=== PATIENT | female | born 1990 | race Caucasian/White ===

== ENCOUNTER 2021-09-29 15:47 | Outpatient (REF) | payer MEDICAID, OTHER, SELFPAY ==
--- NOTE | ~2021-09-29 | US_ITS ---
EXAMINATION: US PELVIS CLINICAL INFORMATION: Vaginal bleeding since IUD insertion 5 months ago. COMPARISON: None TECHNIQUE: Ultrasound of the pelvis is performed using both transabdominal and transvaginal transducers along with Doppler. Transvaginal imaging is performed due to inadequate visualization transabdominally. FINDINGS: UTERUS: The uterus is anteverted, anteflexed and measures 10.4 x 3.5 x 5.9 cm. The double wall endometrial thickness is 1.4 cm. There is an IUD within the endometrial canal in correct position. The uterus is smooth in contour and has normal myometrial echogenicity. No visible fibroid. ADNEXA: Both ovaries are visualized. There is normal color flow to the adnexa. There is no ovarian torsion. There is no pelvic ascites or fluid collection. Right ovary measures 2.9 x 1.9 x 2.7 cm and volume 7.8 mL. It appears unremarkable. Left ovary measures 4.5 x 2.7 x 3.3 cm and volume 2.1 mL. There is an anechoic cyst measuring 2.5 x 1.9 x 2.3 cm. US/US pelvic and transvaginal IMPRESSION: IUD within the endometrial canal in correct position. The uterus is otherwise unremarkable. Simple cyst left ovary.
== END 2021-09-29 15:48 | disposition home or self-care (01) ==
LOC: HO.US 15:47
PROVIDERS: Visit Provider Registered Nurse Community Health
DX: N93.9 Abnormal uterine and vaginal bleeding, unspecified (principal)
CPT/HCPCS: 76830; 76856

== ENCOUNTER 2021-10-05 08:49 | Emergency (ER) | payer MEDICAID, OTHER, SELFPAY ==
[2021-10-05 10:32] VITALS: BP 140/98; PULSE 82; RESP 20; TEMP 36.1; O2SAT 100; BMI 26.6
--- NOTE | 2021-10-05 18:30 | ED_ITS ---
HPI - Female Genitourinary General Chief complaint: Urogenital-Female Stated complaint: vaginal pain Time Seen by Provider: 10/05/21 17:51 Source: patient Mode of arrival: ambulatory Limitations: no limitations History of Present Illness HPI Narrative: This is a 30-year-old female presenting to the emergency department with pain to the left labia times 15 days. Patient tells me that the pain is intolerable and she can barely sit. She reports the pain is a 10/10, worse when she is sitting. She tells me that this has never happened to her before. She reports that the area is red and painful. She has not seek medical attention for this. She tells me that she is having normal vaginal discharge nothing out of the ordinary. She has been taking Tylenol with little to no relief. She tells me she is and has no concerns for STDs. Patient denies fevers, chills, chest pain, shortness of breath, nausea, vomiting. Onset (ago): day(s) (15) Location of symptoms: external genitalia Severity: severe Severity scale (1-10): >10 Quality of pain: sharp, burning and stabbing Vaginal discharge: other (clear normal ) Vaginal bleeding: none Exacerbating factors: none Relieving factors: none Associated symptoms: denies other symptoms Treatment prior to arrival: acetaminophen and NSAIDs Sexual activity: Yes Related Data Previous Rx's Medication Instructions Recorded cephalexin 500 mg tablet 500 mg PO Q6H 7 Days #28 tab 10/05/21 doxycycline hyclate 100 mg capsule 100 mg PO BID 7 Days #14 cap 10/05/21 ketorolac 10 mg tablet 10 mg PO TID PRN #8 tab 10/05/21 Allergies Allergy/AdvReac Type Severity Reaction Status Date / Time No Known Allergies Allergy Verified 10/05/21 10:47 Review of Systems Review of Systems: Constitutional : No Weight loss, No Fever, No Chills, No Fatigue, No Malaise ENT/Mouth : No sore throat, No Rhinorrhea Eyes: No Eye Pain, No Swelling, No Redness Cardiovascular : No Chest Pain, No SOB, No Dyspnea on Exertion, No Orthopnea, No Edema, No Palpitations Respiratory : No Cough, No Sputum, No Wheezing Gastrointestinal : No Nausea, No Vomiting, No Diarrhea, No Constipation, No abdominal Pain, No Hematochezia, No Melena Genitourinary : No Dysuria, No Urinary Frequency, No Hematuria, + labia swelling on left Musculoskeletal : No joint pain, No Myalgias, No Joint Swelling Skin : No Skin Lesions, No rash Neuro : No Weakness, No Numbness, No Dizziness, No Headache All other systems reviewed and are negative Yes all other systems are reviewed and are negative FOR[facility]LY [facility] Past Medical History Attestation statement: The following information was validated with the patient. Source: old records reviewed and nursing notes reviewed Social History Social History Advance Directives: No Advance Directives Information Provided: No Physical Exam Vital Signs: Vital Signs: Last Vital Signs Temp 97.0 F 10/05/21 10:32 Pulse 103 H 10/05/21 20:13 Resp 22 H 10/05/21 20:13 BP 116/60 10/05/21 20:13 Pulse Ox 99 10/05/21 20:13 BMI result Body Mass Index 26.6 VSS Appearance: Alert.? Oriented X3.? No acute distress.? Head: Normocephalic, atraumatic, no step-offs or deformities Eyes: Pupils equal, round and reactive to light.? ENT: Pharynx normal.? Neck: Normal inspection.? Neck supple.? CVS: Normal heart rate and rhythm.? Pulses normal.? Respiratory: No respiratory distress.? Breath sounds normal.? Abdomen: Soft and nontender.? Skin: Skin warm and dry.? Normal skin color.? Normal skin turgor.? Sensitive exam: +Very large abscess noted to the left labia, left labia is erythematous, warm and very tender to the touch. No evident vaginal discharge or bleeding. Extremities: No lower extremity edema.? No calf ttp. 5/5 strength to bilateral upper and lower extremities Back: No midline tenderness, no C-spine tenderness, full range of motion, no CVA tenderness bilaterally Neuro: Oriented X 3.? No motor deficit.? No sensory deficit. CN 2-12 intact Course Reevaluation(s) Reevaluation #1: After the incision and drainage patient became tremulous and reported that her lips felt tingly. Patient's blood pressure was obtained it was 80/46, sugar of 71, respiratory rate of 24, oxygen saturation of 96% on room air. No evidence of edema or swelling in the mouth. Uvula midline patient controlling secretions well, she appears anxious. Immediately 2 IVs were started, fluids were hung, with improvement. Since vital signs are stable.Nursing at the bedside. Patient didnt tolerate packing. Time: 19:55 Reevaluation #2: Patient is feeling much better, stable vital signs saturating 100% on room air respiratory rate 14 to 16 appears well speaking in full sentences. Patient tells me she thinks that she had an anxiety attack. Offered patient admission however she would like to go home, requesting work note for a week. Patient will be discharged home on doxycycline and Keflex for cellulitis, I am giving her information to follow-up with OBGYN Dr. Nagy. At this time I feel comfortable with discharge. Due to her reaction to morphine and oxycodone I will not send her home on knees. TT Dr. Nagy to make him aware of this patients case. He is aware, patient will call tomorrow. Patient will be DC Time: 21:04 MDM - Female Genitourinary MDM Narrative Medical decision making narrative: 1814 30-year-old female presents with swelling and pain to the left labia times 15 days. Physical examination consistent with a large abscess to the left labia that will require incision and drainage. Patient appears extremely uncomfortable will give her morphine and oxycodone. Area will be incised. Plan at this time is incision and drainage Patient does not want testing for STDs as she tells me she does not think she has any. Medical Records Attestation: I reviewed the patient's medical records. Lab Data Attestation: I reviewed the patient's lab results. Labs: Lab Results 10/05/21 Range/Units 19:53 POC Glucose 71 (60-115) mg/dL Critical Care Time Critical Care Time Critical Care Time: Yes Total Critical Care Time: 60 Attestation: I attest to this time spent taking care of the patient, obtaining history, physical, reviewing labs, imaging, speaking to my attending, speaking to specialist. Discharge Plan Discharge Clinical Impression: Cyst of Bartholin's gland duct Patient Disposition: Home, Self-Care Instructions: Abscess (ED), Abscess Follow-up (ED), Incision and Drainage (ED) Additional Instructions: Take your medications as prescribed. If you were prescribed antibiotics today, it is important that you take your medication to their entirety, do not skip any doses, do not finish them early. Follow-up with your primary care provider this week. Follow-up with OBGYN, call them tommorrow. Return to the emergency department with new or worsening symptoms. Such as fevers, chills, chest pain, shortness of breath, nausea, vomiting, dizziness, headache, vision changes, lethargy, profuse bleeding, discharge, vaginal discharge or bleeding In case of emergency call 911 Take ibuprofen every 6 hours, Tylenol every 4 alternating as needed for pain or discomfort [place] seus medicamentos conforme prescrito. Se lhe ron prescritos antibi?ticos hoje, ? importante que tome a sua medica??o na ?ntegra, n?o salte nenhuma dose, n?o a termine cedo. Fa?a o acompanhamento com seu m?dico de cuidados prim?vieira esta semana. Acompanhamento com OBGYN, ligue para eles amanh?. Retorne ao pronto-emily com sintomas novos ou agravados. [place] febre, calafrios, saira no peito, falta de ar, n?usea, v?calderon, tontura, saira de cabe?a, altera??es na vis?o, letargia, sangramento abundante, corrimento, corrimento vaginal ou sangramento Em maggie de emerg?ncia ligue para o 911 [place] ibuprofeno cada 6 horas, Tylenol cada 4 alternando seg?n sea necesario para el dolor o la incomodidad Prescriptions: New doxycycline hyclate 100 mg capsule 100 mg PO BID 7 Days Qty: 14 0RF cephalexin 500 mg tablet 500 mg PO Q6H 7 Days Qty: 28 0RF ketorolac 10 mg tablet 10 mg PO TID PRN (Reason: pain) Qty: 8 0RF Rx Instructions: Patient can partially filled upon request. Patient tolerated IV tordol here in the emergency department.Do not take any NSAIDS while taking this medication. Referrals: Physician,None [Primary Care Provider] - 2 days Law Nagy MD [Physician] - 3 days Stand Alone Forms: Work/School Release
[2021-10-05 18:45] VITALS: BP 100/60; PULSE 97; RESP 20; O2SAT 98
[2021-10-05] MEDS: Lidocaine HCl 2 % MPF 5 ML VIAL SUBCUT ×2 (18:49)
[2021-10-05 18:50] VITALS: RESP 18
[2021-10-05] MEDS: Morphine Sulfate 4 MG/ML CARTRIDGE IM (18:50)
[2021-10-05] MEDS: oxyCODONE HCl Immed Release 5 MG TABLET PO (18:50)
[2021-10-05] MEDS: Lidocaine 4 % Cream KIT 1 APPL TOPICAL (18:51)
[2021-10-05] MEDS: LORazepam 1 MG TABLET PO (19:38)
[2021-10-05 20:13] VITALS: BP 116/60; PULSE 103; RESP 22; O2SAT 99
[2021-10-05 20:40] LABS: Glucose, Whole Blood 71 mg/dL (60-115)
[2021-10-05 21:30] VITALS: O2SAT 98
== END 2021-10-05 21:48 | disposition home or self-care (01) ==
PROVIDERS: Emergency Provider Internal Medicine
DX: N75.0 Cyst of Bartholin's gland (principal); R10.2 Pelvic and perineal pain
CPT/HCPCS: 56420; 82947; 96372; 96374; 99283; 99291; J2270

== ENCOUNTER → 2021-10-07 08:14 | Outpatient (BNVA) | payer MEDICAID, OTHER, SELFPAY | PROVIDERS: Visit Provider Advanced Practice Midwife | DX: N76.4 Abscess of vulva (principal) | CPT/HCPCS: 99202 ==